=== PATIENT | male | born 1940 | race Caucasian/White ===

== ENCOUNTER 2025-02-12 11:20 | Inpatient (IN) | payer MEDICARE, BC ==
[~2025-02-12] VITALS: Ht 180.3 cm; Wt 76.7 kg
[~2025-02-12 11:20] MED LIST: HEPARIN SODIUM,PORCINE 5,000 UNITS/ML VIAL SQ SCH
[2025-02-12 11:47] VITALS: BP 133/70; TEMP 98.7
[2025-02-12 12:06] VITALS: BP 133/70; TEMP 98.7
[2025-02-12] MEDS ORDERED: ACET325T53 PO (15:41)
[2025-02-12] MEDS ORDERED: AMLO2.5T4 PO (15:42)
[2025-02-12] MEDS ORDERED: CLOP75TA33 PO (15:43)
[2025-02-12] MEDS ORDERED: ATOR80TA PO (15:43)
[2025-02-12] MEDS ORDERED: DONE5TAB34 PO (15:44)
[2025-02-12] MEDS ORDERED: DIAZ5TAB4 PO (15:44)
[2025-02-12] MEDS ORDERED: REMEDY ESSENTIAL ZINC PASTE 113 GM TOP PRN (15:45)
[2025-02-12] MEDS ORDERED: HEPA500034 SQ (15:45)
[2025-02-12] MEDS ORDERED: HYDR-3972 PO (15:46)
[2025-02-12] MEDS ORDERED: MAGN400O6 PO (15:47)
[2025-02-12] MEDS ORDERED: PANT40TA2 PO (15:47)
[2025-02-12] MEDS ORDERED: SERT-440 PO (15:48)
[2025-02-12] MEDS ORDERED: SOD62.5V IV (16:11)
[2025-02-12 16:34] VITALS: BP 141/60; TEMP 98.1; O2SAT 99
[2025-02-12 19:50] VITALS: BP 141/52; TEMP 98.1; O2SAT 86
[2025-02-12] MEDS ORDERED: MAGNESIUM HYDROXIDE 30 ML LIQUID UDC PO PRN (20:45)
[2025-02-12] MEDS ORDERED: HYDROCODONE/APAP 5-325MG TABLET PO PRN (20:45)
[2025-02-12] MEDS ORDERED: ACETAMINOPHEN 325 MG TABLET-SA PATIENTS-PAIN ONLY PO PRN (20:45)
[2025-02-12] MEDS: DIAZEPAM 5 MG TABLET PO SCH (21:14)
[2025-02-12] MEDS: ATORVASTATIN 40 MG TABLET PO SCH (21:14)
[2025-02-13] MEDS: PANTOPRAZOLE SODIUM 40 MG TABLET.DR PO SCH (06:44)
[2025-02-13 06:52] VITALS: BP 126/52; TEMP 98.9; O2SAT 96
[2025-02-13 07:26] LABS: PLATELET COUNT (AUTO) 356 K/uL (152-348); RED BLOOD CELL COUNT(AUTO) 3.25 MIL/uL (4.06-5.63); RED CELL DISTRIBUTION WIDTH 19.8 % (12.1-16.2); WHITE BLOOD COUNT (AUTO) 6.6 K/uL (3.6-10.2)
[2025-02-13 07:39] VITALS: BP 130/79; TEMP 98.1; O2SAT 94
[2025-02-13] MEDS: DONEPEZIL 5 MG TABLET PO SCH (09:52)
[2025-02-13] MEDS: AMLODIPINE 2.5 MG TABLET PO SCH (09:53)
[2025-02-13] MEDS: CLOPIDOGREL 75 MG TABLET PO SCH (09:53)
[2025-02-13] MEDS: SERTRALINE HCL 100 MG TABLET PO SCH (09:53)
[2025-02-13] MEDS: HEPARIN SODIUM,PORCINE 5,000 UNITS/ML VIAL SQ SCH (09:54)
[2025-02-13] MEDS: ACETAMINOPHEN 325 MG TABLET PO PRN (10:04)
[2025-02-13 10:59] VITALS: BP 115/54; TEMP 98.5; O2SAT 94
[2025-02-13] MEDS: SOD FERRIC GLUC COMPLX/SUCROSE 125 MG in IV NORMAL SALINE 100 ML IV SCH (14:48)
[2025-02-13 15:35] VITALS: BP 97/57; TEMP 97; TEMP 97.8; O2SAT 99
[2025-02-13 19:38] VITALS: BP 112/60; TEMP 98.2; O2SAT 96
[2025-02-14 05:29] VITALS: BP 133/63; TEMP 98.5; O2SAT 98
[2025-02-14] MEDS: HYDROCODONE/APAP 5-325MG TABLET PO PRN (09:04)
[2025-02-14 11:06] VITALS: BP 135/60; TEMP 98.9; O2SAT 96
[2025-02-14] MEDS: DOCUSATE SODIUM 100 MG CAPSULE PO SCH (11:11)
[2025-02-14] MEDS: MAGNESIUM HYDROXIDE 30 ML LIQUID UDC PO PRN (11:11)
[2025-02-14 15:50] VITALS: BP 104/57; TEMP 98.4; O2SAT 97
[2025-02-14] MEDS: ENSURE WITH FIBER 237 ML LIQUID (CHOCOLATE) PO SCH (16:57)
[2025-02-14] MEDS: FLEET ENEMA 133 ML BOTTLE RC ONE ×2 (18:35→19:50)
[2025-02-14 19:00] VITALS: BP 136/65; TEMP 98; O2SAT 100
[2025-02-14] MEDS ORDERED: LACTULOSE 20 G/30 ML LIQUID UDC PO ONE (20:15)
[2025-02-15 04:00] VITALS: BP 104/53; TEMP 98.5; O2SAT 95
[2025-02-15 06:53] LABS: PLATELET COUNT (AUTO) 416 K/uL (152-348); RED BLOOD CELL COUNT(AUTO) 3.25 MIL/uL (4.06-5.63); RED CELL DISTRIBUTION WIDTH 20.4 % (12.1-16.2); WHITE BLOOD COUNT (AUTO) 9.6 K/uL (3.6-10.2)
[2025-02-15] MEDS: OXYCODONE HCL 5 MG TABLET PO PRN (08:36)
[2025-02-15] MEDS: ENSURE WITH FIBER 237 ML LIQUID (CHOCOLATE) PO SCH (08:39)
[2025-02-15 16:18] VITALS: BP 109/49; TEMP 97.8; O2SAT 97
[2025-02-15 19:00] VITALS: BP 110/59; TEMP 98.1; O2SAT 95
[2025-02-16 04:00] VITALS: BP 112/60; TEMP 98.2; O2SAT 95
[2025-02-16 07:34] VITALS: BP 97/51; TEMP 98.3; O2SAT 95
[2025-02-16] MEDS: MIRALAX 17 GM POWD.PACK PO SCH (08:51)
[2025-02-16 15:55] VITALS: BP_SYST 105; BP_SYST 129; BP_DIAS 47; BP_DIAS 55; TEMP 97.7; TEMP 98.7; O2SAT 93; O2SAT 99
[2025-02-16 19:00] VITALS: BP 105/46; TEMP 98.7; O2SAT 96
[2025-02-17 04:00] VITALS: BP 120/57; TEMP 98.2; O2SAT 95
[2025-02-17 07:55] VITALS: BP 156/60; TEMP 98; O2SAT 95
[2025-02-17 08:44] VITALS: BP 107/52
[2025-02-17] MEDS: FLEET ENEMA 133 ML BOTTLE RC ONE (13:47)
[2025-02-17 16:00] VITALS: BP 139/55; TEMP 97.8; O2SAT 99
[2025-02-17 19:00] VITALS: BP 122/59; TEMP 98.4; O2SAT 95
[2025-02-17] MEDS: SENNOSIDES 1 TABLET PO SCH (20:57)
[2025-02-18 04:00] VITALS: BP 122/61; TEMP 97.8; O2SAT 95
[2025-02-18 07:38] VITALS: BP 122/79; TEMP 98.3; O2SAT 94
[2025-02-18 15:31] VITALS: BP 121/61; TEMP 98.4; O2SAT 96
[2025-02-18 20:10] VITALS: BP 146/50; TEMP 98.6; O2SAT 96
[2025-02-19 06:00] VITALS: BP 120/57; TEMP 98.4; O2SAT 99
[2025-02-19 07:32] VITALS: BP 110/56; TEMP 98.8; O2SAT 97
[2025-02-19 15:54] VITALS: BP 104/45; TEMP 99; O2SAT 97
[2025-02-19 19:34] VITALS: BP 90/49; TEMP 98.8; O2SAT 97
[2025-02-20 05:34] VITALS: BP 112/59; TEMP 98.2; O2SAT 98
[2025-02-20 07:35] VITALS: BP 145/70; TEMP 98; O2SAT 98
[2025-02-20] MEDS: ARGININE/GLUTAMINE/CALCIUM BMB 1 EACH POWD.PACK PO SCH (08:57)
[2025-02-20] MEDS: VANCOMYCIN HCL 750 MG in IV DEXTROSE 5% 250 ML IV SCH (12:15)
[2025-02-20] MEDS: CEFEPIME HCL 2 GM in IV DEXTROSE 5% 100 ML IV SCH (14:31)
[2025-02-20 15:45] VITALS: BP 103/57; TEMP 98.9; O2SAT 99
[2025-02-20 19:30] VITALS: BP 104/58; TEMP 98.3; O2SAT 95
[2025-02-21 06:50] VITALS: BP 101/50; TEMP 98.7; O2SAT 92
[2025-02-21 06:58] LABS: CREATININE 1.1 mg/dL (0.6-1.3); SODIUM SERUM 140 mmol/L (136-145); UREA NITROGEN, BLOOD 26 mg/dL (7-18)
[2025-02-21 07:40] VITALS: BP 119/57; TEMP 98.4; O2SAT 97
[2025-02-21 15:38] VITALS: BP 124/63; TEMP 98.6; O2SAT 97
[2025-02-21] MEDS: CEFEPIME HCL 2 GM in IV DEXTROSE 5% 100 ML IV SCH (17:07)
[2025-02-21] MEDS: FLEET ENEMA 133 ML BOTTLE RC PRN (18:38)
[2025-02-21 19:30] VITALS: BP 120/54; TEMP 98.8; O2SAT 96
[2025-02-22 06:20] VITALS: BP 114/54; TEMP 98.5; O2SAT 93
[2025-02-22 08:03] VITALS: BP 132/65; TEMP 98; O2SAT 98
[2025-02-22] MEDS: VANCOMYCIN HCL 750 MG in IV DEXTROSE 5% 250 ML IV SCH ×2 (09:28→21:23)
[2025-02-22 16:57] VITALS: BP 129/60; TEMP 98; O2SAT 98
[2025-02-22 21:32] VITALS: BP 142/62; TEMP 98.3; O2SAT 98
[2025-02-23 05:33] LABS: CREATININE 1.0 mg/dL (0.6-1.3); SODIUM SERUM 141 mmol/L (136-145); UREA NITROGEN, BLOOD 22 mg/dL (7-18)
[2025-02-23 06:05] VITALS: BP 124/66; TEMP 98.2; O2SAT 96
[2025-02-23 08:00] VITALS: BP 133/62; TEMP 97.9; O2SAT 97
[2025-02-23 17:00] VITALS: BP 114/60; TEMP 98; O2SAT 96
[2025-02-23 19:57] VITALS: BP 132/68; TEMP 98.8; O2SAT 98
[2025-02-23 22:00] VITALS: BP 133/61; TEMP 98.2; O2SAT 95
[2025-02-24 05:19] VITALS: BP 134/67; TEMP 97.4; O2SAT 95
[2025-02-24 07:30] VITALS: BP 135/71; TEMP 98.9; O2SAT 94
[2025-02-24] MEDS: SULFAMETH/TRIMETH 800/160 MG TABLET PO SCH (13:41)
[2025-02-24 17:00] VITALS: BP 120/57; TEMP 97; O2SAT 99
[2025-02-24 17:32] VITALS: BP 120/57; TEMP 97.8; O2SAT 99
[2025-02-24 20:07] VITALS: BP 137/64; TEMP 98.4; O2SAT 98
[2025-02-24] MEDS: MELATONIN 3 MG TABLET PO PRN (23:32)
[2025-02-25 06:00] VITALS: BP 120/65; TEMP 98; O2SAT 93
[2025-02-25 07:20] LABS: CREATININE 1.0 mg/dL (0.6-1.3); PLATELET COUNT (AUTO) 663 K/uL (152-348); RED BLOOD CELL COUNT(AUTO) 3.69 MIL/uL (4.06-5.63); RED CELL DISTRIBUTION WIDTH 22.5 % (12.1-16.2); SODIUM SERUM 137 mmol/L (136-145); UREA NITROGEN, BLOOD 24 mg/dL (7-18); WHITE BLOOD COUNT (AUTO) 6.0 K/uL (3.6-10.2)
[2025-02-25 16:00] VITALS: BP 139/75; TEMP 98.6; O2SAT 95
[2025-02-25 20:00] VITALS: BP 108/51; TEMP 98.3; O2SAT 98
[2025-02-26 06:25] VITALS: BP 143/61; TEMP 98.3; O2SAT 97
[2025-02-26 08:17] VITALS: BP 134/67; TEMP 97.7; O2SAT 95
[2025-02-26 09:14] VITALS: BP 134/67
== END 2025-02-26 14:40 | disposition home health service (06) | DRG 560 ==
PROVIDERS: ADMIT Physical Medicine & Rehabilitation Pain Medicine; ATTEND Physical Medicine & Rehabilitation Pain Medicine
DX: S72.141D Displaced intertrochanteric fracture of right femur, subsequent encounter for closed fracture with routine healing (principal); E44.0 Moderate protein-calorie malnutrition; F03.A4 Unspecified dementia, mild, with anxiety; I10 Essential (primary) hypertension; E88.09 Other disorders of plasma-protein metabolism, not elsewhere classified; W18.30XD Fall on same level, unspecified, subsequent encounter; I25.10 Atherosclerotic heart disease of native coronary artery without angina pectoris; E78.5 Hyperlipidemia, unspecified; D64.89 Other specified anemias; K59.00 Constipation, unspecified; H91.13 Presbycusis, bilateral; I25.2 Old myocardial infarction
CPT/HCPCS: 36415; 73501; 83735; 84100; 85025; 97535-GO-CO; A6213; J0692; J1644; J2916; J7050